=== PATIENT | female | born 1975 | race Two or more races ===

== ENCOUNTER 2016-09-23 12:51 | Emergency (ER) | payer MEDICAID ==
[~2016-09-23] VITALS: Ht 165.1 cm; Wt 110.0 kg
[2016-09-23] MEDS ORDERED: SODIUM CHLORIDE 0.9% 1,000 ML IV ONE ×2 (14:38→17:51)
[2016-09-23] MEDS ORDERED: LORAZEPAM 2MG/ML CPJ IV ONE (14:45)
[2016-09-23] MEDS ORDERED: CLONIDINE 0.2MG TABLET PO ONE (14:45)
[2016-09-23 14:58] LABS: CLARITY URINE CLOUDY (CLEAR); COLOR URINE YELLOW (YELLOW); GLUCOSE URINE 3+ (NEGATIVE); KETONES URINE NEGATIVE (NEGATIVE); LEUKOCYTE ESTERASE URINE NEGATIVE (NEGATIVE); NITRITE URINE NEGATIVE (NEGATIVE); OCCULT BLOOD URINE 2+ (NEGATIVE); PH URINE 5.5 (4.5-8.0); PROTEIN URINE NEGATIVE (NEGATIVE); SPECIFIC GRAVITY URINE 1.046 (1.005-1.030)
[2016-09-23 14:58] LABS: BASOPHILS % 1.1 % (0.0-2.0); EOSINOPHILS % 3.9 % (0.0-5.0); HEMATOCRIT. 41.8 % (36.0-48.0); HEMOGLOBIN. 14.8 g/dL (12.0-16.0); LYMPHOCYTES % 24.7 % (20.0-50.0); MEAN CORPUSCULAR HEMOGLOBIN 31.7 pg (28.0-32.0); MEAN CORPUSCULAR HGB CONC 35.5 g/dL (31.0-37.0); MEAN CORPUSCULAR VOLUME 89.3 fL (81.0-99.0); MEAN PLATELET VOLUME 10.5 fl (7.4-10.4); MONOCYTES % 10.3 % (2.0-8.0); PLATELET 174 x1000/uL (130-400); RED BLOOD CELL COUNT 4.68 mill/uL (4.2-5.4); RED CELL DISTRIBUTION WIDTH 12.6 % (11.6-14.6); WHITE BLOOD COUNT 7.9 x1000/uL (4.5-11.0)
[2016-09-23 15:06] LABS: PROTHROMBIN TIME 10.8 sec
[2016-09-23 15:09] LABS: ALBUMIN 3.6 g/dL (3.4-5.0); ANION GAP 15; CALCIUM 8.6 mg/dL (8.5-10.1); CARBON DIOXIDE 24 mEq/L (21-32); CHLORIDE 103 mEq/L (98-107); ETHANOL BLOOD < 10 mg/dL; INDEX HEMOLYSI 1 (1-3); INDEX ICTERIC 1 (1-4); INDEX LIPEMIC 1 (1-3); UREA NITROGEN BLOOD 12 mg/dL (7-21)
[2016-09-23 15:11] LABS: BACTERIA URINE 1+; SQUAMOUS EPITHELIAL CELL URINE 3+ /lpf (RARE/1+)
[2016-09-23 15:12] LABS: ACETAMINOPHEN < 2 ug/mL (10-30); ALANINE AMINOTRANSFERASE 74 IU/L (13-61); eGFR > 60 mL/min (>60)
[2016-09-23 15:13] LABS: YEAST URINE 1+
[2016-09-23 15:15] LABS: CREATINE KINASE 251 IU/L (26-192); NT PRO B-TYPE NATRIURETIC PEP 232 pg/mL (5-125); TROPONIN I < 0.02 ng/mL (0.00-0.04)
[2016-09-23] MEDS ORDERED: INSULIN REGULAR (HUMULIN R) 300UNITS/3ML SUBCUT ONE (16:30)
[2016-09-23 17:46] LABS: *BARBITURATES SCREEN URINE NEGATIVE (NEGATIVE); *BENZODIAZEPINES SCREEN URINE NEGATIVE (NEGATIVE); *COCAINE SCREEN URINE NEGATIVE (NEGATIVE); CANNABINOID URINE SCREEN NEGATIVE (NEGATIVE); ECSTASY MDMA SCREEN URINE NEGATIVE (NEGATIVE); METHADONE URINE SCREEN NEGATIVE (NEGATIVE); OPIATES URINE SCREEN NEGATIVE (NEGATIVE); PHENCYCLIDINE URINE SCREEN NEGATIVE (NEGATIVE)
[2016-09-23 17:48] LABS: *AMPHETAMINES SCREEN URINE PRESUMTIVE POSITIVE (NEGATIVE)
[2016-09-23] MEDS ORDERED: KETOROLAC 30MG/ML VIAL IV ONE (18:00)
[2016-09-24 01:27] VITALS: BP 151/76
== END 2016-09-24 01:27 | disposition home or self-care (01) ==
LOC: ER 13:38
DX: T43.621A Poisoning by amphetamines, accidental (unintentional), initial encounter (principal); F15.180 Other stimulant abuse with stimulant-induced anxiety disorder; E11.65 Type 2 diabetes mellitus with hyperglycemia; R00.2 Palpitations; I10 Essential (primary) hypertension; E86.0 Dehydration; N39.0 Urinary tract infection, site not specified; M79.1 Myalgia; Y92.89 Other specified places as the place of occurrence of the external cause; J44.9 Chronic obstructive pulmonary disease, unspecified; J45.909 Unspecified asthma, uncomplicated; Z91.14 Patient's other noncompliance with medication regimen
CPT/HCPCS: 36415; 71010; 80053; 80305; 80329; 81001; 81025; 82550; 82962; 83605; 83880; 84443; 84484; 85025; 85610; 93005; 96361; 96372; 96374; 96375; 99285; G0482; J1815; J1885; J2060; J7030; Z7610; 80307